=== PATIENT | female | born 1950 | race Caucasian/White ===

== ENCOUNTER 2025-03-08 18:55 | Emergency (ER) | payer MEDICARE, OTHER ==
[2025-03-08] MEDS: Dexamethasone 4 MG Tab PO ONE (19:54)
[2025-03-08] MEDS: Acetaminophen 500 MG Tab PO ONE (19:54)
[2025-03-08] MEDS: tiZANidine 4 MG Tab PO ONE (19:55)
[2025-03-08 20:58] LABS: APPEARANCE,URINE SLT CLOUDY; BILIRUBIN,URINE NEGATIVE (NEGATIVE); COLOR,URINE YELLOW; GLUCOSE,URINE NEGATIVE (NEGATIVE); KETONES,URINE NEGATIVE (NEGATIVE); LEUKOCYTE ESTERASE,URINE NEGATIVE (NEGATIVE); NITRITE,URINE NEGATIVE (NEGATIVE); OCCULT BLOOD,URINE NEGATIVE (NEGATIVE); PROTEIN,URINE NEGATIVE (NEGATIVE)
[2025-03-08] MEDS: Orphenadrine 60 MG/2 ML Inj IM ONE (21:29)
[2025-03-08] MEDS: Lidocaine 4% Patch TOP ONE (21:29)
== END 2025-03-08 22:55 | disposition home or self-care (01) ==
LOC: MW.ED 18:55
DX: S39.012A Strain of muscle, fascia and tendon of lower back, initial encounter (principal); Z75.3 Unavailability and inaccessibility of health-care facilities; Z79.899 Other long term (current) drug therapy; X50.0XXA Overexertion from strenuous movement or load, initial encounter; Y93.89 Activity, other specified
CPT/HCPCS: 72131; 81003; 96372; 99284; A9270; J2360; J8540; 99283